=== PATIENT | female | born 1980 | race Two or more races ===

== ENCOUNTER → 2024-08-25 | Emergency (ER) | payer OTHER ==
[~2024-08-25] VITALS: Ht 167.6 cm; Wt 68.9 kg
[~2024-08-25] MED LIST: FAMOTIDINE/PF 20 MG/2 ML VIAL IV ONE; NASAL MIST126 ML NASAL; ONDANSETRON HCL 2 MG/ML VIAL IM ONE; PEPCID AC20 MG PO; ZOFRAN8 MG PO
[2024-08-25 11:20] LABS: HEMATOCRIT 42.1 % (36.0-45.00); HEMOGLOBIN 14.4 g/dL (12.0-15.00); MEAN CELL VOLUME 81.9 fL (80.00-100.00); MEAN CORPUSCULAR HGB CONC 34.3 g/dl (32.0-36.0); PLATELET COUNT 148 K/uL (150-450); RED BLOOD COUNT 5.14 M/uL (4.00-6.00); RED CELL DISTRIBUTION WIDTH 14.7 % (11.5-14.5)
[2024-08-25 11:58] LABS: CALCIUM 9.2 mg/dL (8.5-10.1); CREATININE SERUM 0.69 mg/dL (0.55-1.02); GFR 91.59; POTASSIUM 4.65 mEq/L (3.5-5.1)
== END | disposition home or self-care (01) ==
LOC: ER 09:42
PROVIDERS: General Practice
DX: R10.13 Epigastric pain (principal); R10.12 Left upper quadrant pain; N20.0 Calculus of kidney

== ENCOUNTER 2025-07-25 20:05 | Emergency (ER) | payer OTHER ==
[~2025-07-25] VITALS: Ht 167.6 cm; Wt 69.4 kg
[~2025-07-25 20:05] MED LIST changes: -FAMOTIDINE/PF 20 MG/2 ML VIAL IV ONE; -ONDANSETRON HCL 2 MG/ML VIAL IM ONE
[2025-07-25] MEDS ORDERED: DEXAMETHASONE SODIUM PHOSPHATE 4 MG/ML VIAL IM ONE (22:00)
[2025-07-25] MEDS ORDERED: DEXAMETHASONE SODIUM PHOSPHATE 4 MG/ML VIAL ONE (22:59)
[2025-07-25 23:43] LABS: BASO % 0.7 % (0.1-1.2); EOS # 0.17 (0.04-0.54); EOS % 1.9 % (0.7-7.0); LYMPH # 2.16 (1.18-3.74); LYMPH % 24.6 % (19.3-53.1); MEAN PLATELET VOLUME 13.10 fl (9.4-12.4); MONO # 0.54 (0.24-0.82); MONO % 6.1 % (4.7-12.5); NEUT # 5.85 (1.56-6.13); NEUT % 66.6 % (34.0-71.1); RED CELL DISTRIBUTION WIDTH 13.3 % (11.6-14.4)
== END 2025-07-26 01:49 | disposition home or self-care (01) ==
LOC: ER 20:05
PROVIDERS: Student in an Organized Health Care Education/Training Program
DX: R00.2 Palpitations (principal); F41.9 Anxiety disorder, unspecified; I10 Essential (primary) hypertension